=== PATIENT | male | born 1985 | race Two or more races ===

== ENCOUNTER 2019-04-29 22:29 | Emergency (ER) | payer OTHER ==
[~2019-04-29] VITALS: Ht 167.6 cm; Wt 88.5 kg
[2019-04-29 22:34] VITALS: BP 117/70
[2019-04-29] MEDS ORDERED: LIDOCAINE /MPF 1% VIAL 5 ML VIAL ONE (23:14)
--- NOTE | 2019-04-29 23:17 | NUR ---
AT BEDSIDE FOR SUTURE
[2019-04-29] MEDS: TDAP [DIPH/PERTUSSIS/TET] 0.5 ML VIAL IM ONE (23:28)
[2019-04-29] MEDS ORDERED: TDAP [DIPH/PERTUSSIS/TET] 0.5 ML VIAL IM ONE (23:38)
--- NOTE | 2019-04-29 23:46 | NUR ---
WOUND CLEANED BY MYSELF
--- NOTE | 2019-04-29 23:56 | NUR ---
Patient discharged to home in stable condition. Written and verbal after care instructions given. Patient verbalizes understanding of instruction.
== END 2019-04-29 23:57 | disposition home or self-care (01) ==
LOC: EDSEX 22:30 → ER 22:30
DX: S61.011A Laceration without foreign body of right thumb without damage to nail, initial encounter (principal); Z90.89 Acquired absence of other organs; W26.0XXA Contact with knife, initial encounter; Y93.89 Activity, other specified; Y92.89 Other specified places as the place of occurrence of the external cause; Y99.8 Other external cause status
CPT/HCPCS: 12001; 90471; 90715; 99283; A6403; J3490

== ENCOUNTER 2019-05-04 17:44 | Emergency (ER) | payer OTHER ==
[~2019-05-04] VITALS: Ht 167.6 cm; Wt 88.9 kg
[2019-05-04 17:48] VITALS: BP 121/78
== END 2019-05-04 17:58 | disposition home or self-care (01) ==
LOC: ER 17:45
DX: S61.011D Laceration without foreign body of right thumb without damage to nail, subsequent encounter (principal); Z90.89 Acquired absence of other organs; W26.0XXD Contact with knife, subsequent encounter